=== PATIENT | female | born 1970 | race Caucasian/White ===

== ENCOUNTER 2020-01-12 16:03 | Emergency (ER) | payer BC ==
[2020-01-12] MEDS ORDERED: HYDROcodone/APAP 7.5-325MG 1 EACH TAB PO ONE (17:42)
[2020-01-12] MEDS ORDERED: DIPH,PERTUS(ACELL)TETVAC-LF 0.5 ML VIAL IM ONE (17:42)
[2020-01-12] MEDS ORDERED: LIDOCAINE 1% INJ 10MG/ML (20 ML MDV) SQ ONE (17:42)
--- NOTE | 2020-01-12 18:21 | CT ---
EXAMINATION TYPE: CT abdomen pelvis w con DATE OF EXAM: 01/12/2020 COMPARISON: None HISTORY: back pain following crushing injury CT DLP: combined DLP 788 mGycm Automated exposure control for dose reduction was used. CONTRAST: Performed with IV Contrast, patient injected with 100 mL of Isovue 300. There is minimal subsegmental atelectasis at the lung bases. Heart size is normal. There is no perica rdial effusion. There is no pleural effusion or pneumothorax. Liver spleen stomach appear normal. Bile ducts are not dilated. There is no pancreatic mass. There is no adrenal mass. Kidneys show satisfactory contrast opacification. There is no hydronephrosi s. Ureters are not dilated. Delayed images show normal renal excretion. There is no retroperitoneal a denopathy. Bladder distends smoothly. There is no inguinal hernia. There is no free fluid in the pelv is. Uterus is retroverted. There is no evidence of pelvic mass. Lumbar vertebra have normal spacing and alignment. Posterior elements are intact. Bony pelvis is inta ct. Hip joints appear normal. There is no mesenteric edema. There is no ascites or free air. There is no bowel obstruction. Appendi x is posterior and appears normal. IMPRESSION: No evidence of traumatic injury of the abdomen and pelvis. Mild subsegmental atelectasis at the lung bases.
--- NOTE | 2020-01-12 18:23 | CT ---
EXAMINATION TYPE: CT thor lumbar spine w con DATE OF EXAM: 01/12/2020 COMPARISON: None HISTORY: back pain following crushing injury CT DLP: combined DLP 788 mGycm Automated exposure control for dose reduction was used. CONTRAST: Performed with IV Contrast, patient injected with 100 mL of Isovue 300. Images were obtained from the level of T1-S2 vertebra with IV contrast present. Thoracic and lumbar vertebra have normal spacing and alignment. There is no compression fracture. The re is no paraspinal mass. I see no bony destructive process. The posterior elements are intact. Sacro iliac joints appear normal. Facet joints appear normal. There is no evidence of a pneumothorax. IMPRESSION: Negative CT scan of the thoracic and lumbar spine. No fracture seen..
--- NOTE | 2020-01-12 18:34 | XR ---
EXAMINATION TYPE: XR chest 2V DATE OF EXAM: 01/12/2020 COMPARISON: NONE HISTORY: Pain TECHNIQUE: 2 views FINDINGS: Heart and mediastinum are normal. Lungs are clear. Diaphragm is normal. Bony thorax appears normal. IMPRESSION: Normal chest. Normal heart.
--- NOTE | 2020-01-12 18:35 | XR ---
EXAMINATION TYPE: XR femur RT DATE OF EXAM: 01/12/2020 COMPARISON: NONE HISTORY: Pain TECHNIQUE: 4 views FINDINGS: I see no fracture nor dislocation. Joint spaces are normal. There are no pathologic calcifi cations. IMPRESSION: Negative right femur exam.
--- NOTE | 2020-01-12 18:37 | XR ---
EXAMINATION TYPE: XR ankle complete RT DATE OF EXAM: 01/12/2020 COMPARISON: NONE HISTORY: Crush injury. Pain TECHNIQUE: 4 views FINDINGS: Ankle mortise is anatomic. I see no fracture nor dislocation. There is some lateral soft ti ssue deformity over the distal fibula on the frontal view. IMPRESSION: Possible laceration. No fracture seen. No evidence of a foreign body.
[2020-01-12 18:58] LABS: ALT 16 U/L (4-34); AST 35 U/L (14-36); African American GFR (CKD) >90 (>60 ml/min/1.73 sqM); Albumin 4.6 g/dL (3.5-5.0); Alkaline Phosphatase 62 U/L (38-126); Anion Gap 8 mmol/L; Blood Urea Nitrogen 17 mg/dL (7-17); Calcium 9.6 mg/dL (8.4-10.2); Carbon Dioxide 25 mmol/L (22-30); Chloride 104 mmol/L (98-107); Glucose 89 mg/dL (74-99); Non-African American GFR(CKD) >90 (>60 ml/min/1.73 sqM); Sodium 137 mmol/L (137-145); Total Bilirubin 0.6 mg/dL (0.2-1.3); Total Protein 7.3 g/dL (6.3-8.2)
[2020-01-12 18:59] LABS: Potassium 4.3 mmol/L (3.5-5.1)
[2020-01-12 19:02] LABS: Basophils # (A) 0.1 k/uL (0-0.2); Basophils % (A) 1 %; Eosinophils # (A) 0.5 k/uL (0-0.7); Eosinophils % (A) 5 %; HCT 44.7 % (34.0-46.0); HGB 14.7 gm/dL (11.4-16.0); Lymphocytes # (A) 2.5 k/uL (1.0-4.8); Lymphocytes % (A) 28 %; MCH 30.2 pg (25.0-35.0); MCHC 32.9 g/dL (31.0-37.0); MCV 91.8 fL (80.0-100.0); Mean Platelet Volume 7.7; Monocytes # (A) 0.4 k/uL (0-1.0); Monocytes % (A) 5 %; Neutrophils # (A) 5.3 k/uL (1.3-7.7); Neutrophils % (A) 60 %; Platelet Count 254 k/uL (150-450); RBC 4.87 m/uL (3.80-5.40); RDW 12.5 % (11.5-15.5); WBC 8.8 k/uL (3.8-10.6)
[2020-01-12 19:19] LABS: Appearance,Urine Clear (Clear); Bilirubin,Urine Negative (Negative); Blood,Urine Negative (Negative); Color,Urine Light Yellow; Glucose,Urine (UA) Negative (Negative); Ketones,Urine 1+ (Negative); Leukocyte Esterase,Urine Negative (Negative); Nitrite,Urine Negative (Negative); Protein,Urine Negative (Negative); Urobilinogen,Urine <2.0 mg/dL (<2.0)
--- NOTE | 2020-01-12 19:59 | ED ---
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 She reports that she was attempting to help her remove a riding lawnmower from a shed. was pulling a lawnmower with his truck. The lawnmower ended up tipping over, falling on top of the patient and she became pinned. Patient sustained a laceration to her right ankle. He is complaining of right ankle pain, right femur pain where she has a hematoma and thoracic and lumbar back pain. She does not take any blood thinners. Denies hitting her head. No loss of consciousness. Denies any headaches or visual changes. No unilateral numbness or weakness. Patient was infiltrated into the emergency department without difficulty. No concern for . Did not take anything for pain. No other alleviating, precipitating or modifying factors - Related Data Previous Rx's Medication Instructions Recorded Hydrocodone/Acetaminophen [Hemet 1 tab PO Q6HR PRN #12 tab 01/12/20 5-325] Allergies Allergy/AdvReac Type Severity Reaction Status Date / Time Penicillins Allergy Rash/Hives Verified 01/12/20 16:53 Review of Systems ROS Statement: Those systems with pertinent positive or pertinent negative responses have been documented in the HPI. ROS Other: All systems not noted in ROS Statement are negative. Past Medical History Past Medical History: No Reported History History of Any Multi-Drug Resistant Organisms: None Reported Past Surgical History: No Surgical Hx Reported Past Psychological History: No Psychological Hx Reported Smoking Status: Current every day smoker Past Alcohol Use History: Occasional Past Drug Use History: None Reported General Exam Limitations: no limitations General appearance: alert, in no apparent distress Head exam: Present: atraumatic, normocephalic, normal inspection Eye exam: Present: normal appearance, PERRL, EOMI. Absent: scleral icterus, conjunctival injection, periorbital swelling ENT exam: Present: normal exam, mucous membranes moist Neck exam: Present: normal inspection. Absent: tenderness, meningismus, lymphadenopathy Respiratory exam: Present: normal lung sounds bilaterally. Absent: respiratory distress, wheezes, rales, rhonchi, stridor Cardiovascular Exam: Present: regular rate, normal rhythm, normal heart sounds. Absent: systolic murmur, diastolic murmur, rubs, gallop, clicks GI/Abdominal exam: Present: soft, normal bowel sounds. Absent: distended, tenderness, guarding, rebound, rigid Extremities exam: Present: full ROM, tenderness (right lateral ankle. Mild ankle swelling. No foot or skin pain. 2+ DP and PT pulses.), normal capillary refill. Absent: pedal edema, joint swelling, calf tenderness Back exam: Present: paraspinal tenderness (entire thoracic and lumbar regions pe r the patient. No step off or deformities appreciated. No overlying ecchmyosis) Neurological exam: Present: alert, oriented X3, CN II-XII intact Psychiatric exam: Present: normal affect, normal mood Skin exam: Present: warm, dry, normal color, other (laceration right lateral ankle - 4 x 1 cm. ). Absent: rash Course Vital Signs 01/12/20 01/12/20 16:47 20:37 Temperature 98.5 F 98.2 F Pulse Rate 66 65 Respiratory 18 16 Rate Blood Pressure 160/93 162/98 O2 Sat by Pulse 99 98 Oximetry Procedures - Laceration Laceration #1 Consent Obtained: verbal consent Indication: laceration Site: lower extremity Size (cm): 4 Description: linear Depth: simple, single layer Anesthetic Used: lidocaine 1% Anesthesia Technique: local infiltration Amount (mls): 10 Pre-repair: wound explored, irrigated extensively, deep structures intact Type of Sutures: nylon Size of Sutures: 5-0 Number of Sutures: 5 Technique: simple, interrupted Patient Tolerated Procedure: well, no complications Medical Decision Making - Medical Decision Making Pulmonary the patient was placed into room 28. A thorough history and physical exam was performed. Peripheral IV is established. Patient was given a Hemet 7.5. Tetanus is updated as patient is not up-to-date on her tetanus. Laboratory studies were conducted due to the significance of the trauma. Laboratory studies are unremarkable. Patient was sent for a CT of her abdomen, pelvis, thoracic and lumbar spine. No acute signs of trauma to the abdomen. Mild subsegmental atelectasis at the lung bases. Femur and ankle x-ray are negative for any acute fractures. I did repair the patient's laceration with 5, simple interrupted sutures. Patient will be discharged home at this time and is to follow-up with primary care physician within 2-4 days. She will be provided with a stirrup splint to wear over her right ankle and to ambulate with crutches that she has at home. She may need repeat imaging if she continues to have pain. Return to the emergency room for any new or worsening symptoms. She was given a prescription for Hemet. Side effect profile is discussed the patient. She must return to the emergency department in 7-10 days after sutures removed. Patient understood this. Patient was discharged home in stable condition - Lab Data Result diagrams: 01/12/20 18:06 01/12/20 18:06 Lab Results 01/12/20 01/12/20 01/12/20 Range/Units 18:06 18:06 18:06 WBC 8.8 (3.8-10.6) k/uL RBC 4.87 (3.80-5.40) m/uL Hgb 14.7 (11.4-16.0) gm/dL Hct 44.7 (34.0-46.0) % MCV 91.8 (80.0-100.0) fL MCH 30.2 (25.0-35.0) pg MCHC 32.9 (31.0-37.0) g/dL RDW 12.5 (11.5-15.5) % Plt Count 254 (150-450) k/uL Neutrophils % 60 % Lymphocytes % 28 % Monocytes % 5 % Eosinophils % 5 % Basophils % 1 % Neutrophils # 5.3 (1.3-7.7) k/uL Lymphocytes # 2.5 (1.0-4.8) k/uL Monocytes # 0.4 (0-1.0) k/uL Eosinophils # 0.5 (0-0.7) k/uL Basophils # 0.1 (0-0.2) k/uL Sodium (137-145) mmol/L Potassium (3.5-5.1) mmol/L Chloride (98-107) mmol/L Carbon Dioxide (22-30) mmol/L Anion Gap mmol/L BUN (7-17) mg/dL Creatinine (0.52-1.04) mg/dL Est GFR (CKD-EPI)AfAm (>60 ml/min/1.73 sqM) Est GFR (CKD-EPI)NonAf (>60 ml/min/1.73 sqM) Glucose (74-99) mg/dL Calcium (8.4-10.2) mg/dL Total Bilirubin (0.2-1.3) mg/dL AST (14-36) U/L ALT (4-34) U/L Alkaline Phosphatase (38-126) U/L Total Protein (6.3-8.2) g/dL Albumin (3.5-5.0) g/dL Lipase (23-300) U/L Urine Color Light Yellow Urine Appearance Clear (Clear) Urine pH 6.0 (5.0-8.0) Ur Specific [place] 1.050 H (1.001-1.035) Urine Protein Negative (Negative) Urine Glucose (UA) Negative (Negative) Urine Ketones 1+ H (Negative) Urine Blood Negative (Negative) Urine Nitrite Negative (Negative) Urine Bilirubin Negative (Negative) Urine Urobilinogen <2.0 (<2.0) mg/dL Ur Leukocyte Esterase Negative (Negative) Urine HCG, Qual Not Detected (Not Detectd) 01/12/20 Range/Units 18:06 WBC (3.8-10.6) k/uL RBC (3.80-5.40) m/uL Hgb (11.4-16.0) gm/dL Hct (34.0-46.0) % MCV (80.0-100.0) fL MCH (25.0-35.0) pg MCHC (31.0-37.0) g/dL RDW (11.5-15.5) % Plt Count (150-450) k/uL Neutrophils % % Lymphocytes % % Monocytes % % Eosinophils % % Basophils % % Neutrophils # (1.3-7.7) k/uL Lymphocytes # (1.0-4.8) k/uL Monocytes # (0-1.0) k/uL Eosinophils # (0-0.7) k/uL Basophils # (0-0.2) k/uL Sodium 137 (137-145) mmol/L Potassium 4.3 (3.5-5.1) mmol/L Chloride 104 (98-107) mmol/L Carbon Dioxide 25 (22-30) mmol/L Anion Gap 8 mmol/L BUN 17 (7-17) mg/dL Creatinine 0.55 (0.52-1.04) mg/dL Est GFR (CKD-EPI)AfAm >90 (>60 ml/min/1.73 sqM) Est GFR (CKD-EPI)NonAf >90 (>60 ml/min/1.73 sqM) Glucose 89 (74-99) mg/dL Calcium 9.6 (8.4-10.2) mg/dL Total Bilirubin 0.6 (0.2-1.3) mg/dL AST 35 (14-36) U/L ALT 16 (4-34) U/L Alkaline Phosphatase 62 (38-126) U/L Total Protein 7.3 (6.3-8.2) g/dL Albumin 4.6 (3.5-5.0) g/dL Lipase 35 (23-300) U/L Urine Color Urine Appearance (Clear) Urine pH (5.0-8.0) Ur Specific [place] (1.001-1.035) Urine Protein (Negative) Urine Glucose (UA) (Negative) Urine Ketones (Negative) Urine Blood (Negative) Urine Nitrite (Negative) Urine Bilirubin (Negative) Urine Urobilinogen (<2.0) mg/dL Ur Leukocyte Esterase (Negative) Urine HCG, Qual (Not Detectd) Disposition Clinical Impression: Laceration of right ankle, Crush injury, Acute thoracic back pain, Lumbar back pain Disposition: HOME SELF-CARE Condition: Stable Instructions (If sedation given, give patient instructions): Care For Your Stitches (DC), Laceration (ED) Additional Instructions: Please follow-up with your primary care doctor. Return to the emergency room for any new or worsening symptoms Prescriptions: Hydrocodone/Acetaminophen [Hemet 5-325] 1 tab PO Q6HR PRN #12 tab PRN Reason: Pain Is patient prescribed a controlled substance at d/c from ED?: Yes When asked, does pt state using other controlled substances?: No If prescribed controlled substance>3 days was MAPS reviewed?: Prescribed <3 Days If opioid is for acute pain is fill amount 7 days or less?: Yes If Rx opioid, was Start Talking consent form obtained?: Yes Referrals: None,Stated [Primary Care Provider] - 1-2 days Mariusz Aguirre, [Doctor of Osteopathic Medicine] - 1-2 days Time of Disposition: 19:59
[2020-01-12 20:38] VITALS: BP 162/98; PULSE 65; RESP 16; TEMP 98.2
--- NOTE | 2020-01-13 08:48 | CDI ---
Dear Phuong Hudson DO Please do addendum for length of laceration repaired, required Thank you, Corina Moctezuma, Vice President Fixed Income If you have any questions, please contact Video Effects Editor at [phone] [facility]
== END 2020-01-12 20:45 | disposition home or self-care (01) ==
LOC: EC 16:03
DX: S70.11XA Contusion of right thigh, initial encounter (principal); S91.011A Laceration without foreign body, right ankle, initial encounter; T14.8XXA Other injury of unspecified body region, initial encounter; J98.11 Atelectasis; F17.200 Nicotine dependence, unspecified, uncomplicated; Z88.0 Allergy status to penicillin; Z23 Encounter for immunization; W28.XXXA Contact with powered lawn mower, initial encounter
CPT/HCPCS: 90471; 36415; 80053; 83690; 85025; 81003; 81025; 73552; 73610; 71046; 72129; 72132; 74177; 90715; 12002; 99284; J2001; Q9967